=== PATIENT | female | born 1975 | race Two or more races ===

== ENCOUNTER → 2022-03-05 | Outpatient (CLI) | payer OTHER | END | disposition home or self-care (01) | LOC: RAD 16:26 | PROVIDERS: ATTEND Internal Medicine Cardiovascular Disease | DX: I10 Essential (primary) hypertension (principal) ==

== ENCOUNTER 2022-03-12 08:10 | Outpatient (CLI) | payer OTHER | END 2022-03-12 08:11 | disposition home or self-care (01) | LOC: NUCLEAR 08:10 | PROVIDERS: ATTEND Internal Medicine Cardiovascular Disease | DX: I10 Essential (primary) hypertension (principal) ==

== ENCOUNTER 2022-04-22 14:39 | Outpatient (CLI) | payer OTHER | END 2022-04-22 14:52 | disposition home or self-care (01) | LOC: MAMO-SONO 14:39 | PROVIDERS: ATTEND Obstetrics & Gynecology | DX: Z12.31 Encounter for screening mammogram for malignant neoplasm of breast (principal); N60.11 Diffuse cystic mastopathy of right breast; N60.12 Diffuse cystic mastopathy of left breast ==

== ENCOUNTER 2022-05-22 11:33 | Outpatient (CLI) | payer OTHER | END 2022-05-22 11:49 | disposition home or self-care (01) | LOC: SONOGRAMA 11:33 | PROVIDERS: ATTEND Surgery | DX: N60.11 Diffuse cystic mastopathy of right breast (principal); N60.12 Diffuse cystic mastopathy of left breast; R59.0 Localized enlarged lymph nodes ==